=== PATIENT | female | born 1990 | race Caucasian/White ===

== ENCOUNTER 2018-07-17 22:11 | Emergency (ER) | payer MEDICAID ==
[2018-07-18] MEDS: METHYLPREDNISOLONE 125 MG INJ IV (00:31)
[2018-07-18] MEDS: DIPHENHYDRAMINE 50 MG INJ IV (00:31)
== END 2018-07-18 01:05 | disposition home or self-care (01) ==
LOC: FTE 22:11
DX: R21 Rash and other nonspecific skin eruption (principal)
CPT/HCPCS: 96374; 96375; 99284-25; J1200